=== PATIENT | male | born 1990 | race Caucasian/White ===

== ENCOUNTER 2018-05-06 01:16 | Emergency (ER) | payer MEDICAID, OTHER ==
[2018-05-06 01:23] VITALS: BMI 27.4
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
[2018-05-06 01:45] VITALS: BP 145/87; PULSE 100; RESP 22
[2018-05-06 02:18] VITALS: O2SAT 98
== END 2018-05-06 02:40 ==
LOC: ED 01:16
DX: T65.891A Toxic effect of other specified substances, accidental (unintentional), initial encounter (principal); H57.8 Other specified disorders of eye and adnexa

== ENCOUNTER 2018-05-07 15:13 | Emergency (ER) | payer MEDICAID ==
[2018-05-07 15:13] VITALS: BMI 27.4
[2018-05-07 15:17] VITALS: RESP 18; TEMP 98.8
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
[2018-05-07 21:43] VITALS: BP 127/80; PULSE 77; O2SAT 100
== END 2018-05-07 16:00 | disposition home or self-care (01) ==
LOC: ED 15:13
DX: S60.811A Abrasion of right wrist, initial encounter (principal); H04.129 Dry eye syndrome of unspecified lacrimal gland

== ENCOUNTER 2018-06-27 04:09 | Emergency (ER) | payer MEDICAID ==
[2018-06-27 04:09] VITALS: BMI 27.4
--- NOTE | 2018-06-27 04:44 | ED PDOC ---
Arrival/HPI - General Chief Complaint: Alcohol Ingestion Time Seen by Provider: 06/27/18 04:22 Historian: Patient, EMS - History of Present Illness Narrative History of Present Illness (Text): 06/27/18 04:43 Chalo Kerr is a 28 year old male who presents to the emergency department brought in by EMS for public intoxication tonight. Patient was found outside intoxicated by EMS and patient admits to drinking alcohol tonight. Patient denies any fevers, chills, chest pain, shortness of breath, abdominal pain, nausea, vomiting, diarrhea, back pain, neck pain, urinary symptoms, headache, dizziness, or any other complaint. Symptom Onset: Gradual Symptom Course: Unchanged Activities at Onset: Light Context: Street Past Medical History - Provider Review Nursing Documentation Reviewed: Yes - Infectious Disease Hx of Infectious Diseases: None - Psychiatric Hx Depression: No Hx Emotional Abuse: No Hx Physical Abuse: No Hx Substance Use: No - Anesthesia Hx Anesthesia: No - Suicidal Assessment Feels Threatened In Home Enviroment: No Family/Social History - Physician Review Nursing Documentation Reviewed: Yes Family/Social History: Unknown Family HX Smoking Status: Current Some Days Smoker Hx Alcohol Use: Yes Hx Substance Use: No Allergies/Home Meds Allergies/Adverse Reactions: Allergies No Known Allergies Allergy (Verified 05/06/18 01:23) Home Medications: Home Meds Medication Instructions Recorded Confirmed No Known Home Med [No Known Home 10/31/13 05/07/18 Med] Review of Systems - Physician Review All systems were reviewed & negative as marked: Yes - Review of Systems Constitutional: Normal. absent: Fevers Eyes: Normal ENT: Normal Respiratory: Normal. absent: SOB, Cough Cardiovascular: Normal. absent: Chest Pain Gastrointestinal: Normal. absent: Abdominal Pain, Diarrhea, Nausea, Vomiting Genitourinary Male: Normal. absent: Dysuria, Frequency, Hematuria, Urinary Output Changes Musculoskeletal: Normal. absent: Back Pain, Neck Pain Skin: Normal. absent: Rash Neurological: Normal. absent: Headache, Dizziness Endocrine: Normal Hemo/Lymphatic: Normal Psychiatric: Normal Physical Exam Vital Signs Reviewed: Yes Temperature: Afebrile Blood Pressure: Normal Pulse: Regular Respiratory Rate: Normal Appearance: Positive for: Well-Appearing, Non-Toxic, Comfortable Pain Distress: None Mental Status: Positive for: Alert and Oriented X 3 - Systems Exam Head: Present: Atraumatic, Normocephalic Pupils: Present: PERRL Extroacular Muscles: Present: EOMI Conjunctiva: Present: Normal Mouth: Present: Moist Mucous Membranes Neck: Present: Normal Range of Motion Respiratory/Chest: Present: Clear to Auscultation, Good Air Exchange. No: Respiratory Distress, Accessory Muscle Use Cardiovascular: Present: Regular Rate and Rhythm, Normal S1, S2. No: Murmurs Abdomen: No: Tenderness, Distention, Peritoneal Signs Back: Present: Normal Inspection. No: CVA Tenderness, Midline Tenderness, Paraspinal Tenderness Upper Extremity: Present: Normal Inspection. No: Cyanosis, Edema Lower Extremity: Present: Normal Inspection. No: Edema Neurological: Present: GCS=15, CN II-XII Intact, Speech Normal Skin: Present: Warm, Dry, Normal Color. No: Rashes Psychiatric: Present: Alert, Oriented x 3, Normal Insight, Normal Concentration Medical Decision Making ED Course and Treatment: 06/27/18 04:44 Impression: 28 year old male brought in for alcohol intoxication tonight. Plan: -- Reassess and disposition Progress Notes: Pt's mother present in ER to take pt home. Pt is awake, alert, ambulating with steady. In no acute distress, denies any somatic complaints. Pt stable for d/c home. Pt d/c to custody of mother. - Scribe Statement The provider has reviewed the documentation as recorded by the Scribdeborah Gabriel Provider Scribe Attestation: All medical record entries made by the Scribe were at my direction and personally dictated by me. I have reviewed the chart and agree that the record accurately reflects my personal performance of the history, physical exam, medical decision making, and the department course for this patient. I have also personally directed, reviewed, and agree with the discharge instructions and disposition. Disposition/Present on Arrival - Present on Arrival Any Indicators Present on Arrival: No History of DVT/PE: No History of Uncontrolled Diabetes: No Urinary Catheter: No History of Decub. Ulcer: No History Surgical Site Infection Following: None - Disposition Have Diagnosis and Disposition been Completed?: Yes Diagnosis: Alcohol abuse Disposition: HOME/ ROUTINE Disposition Time: 04:49 Patient Plan: Discharge Condition: STABLE Discharge Instructions (ExitCare): Alcohol Abuse and Alcoholism (DC) Referrals: Alcoholics Anonymous [Outside] - Follow up with primary Forms: [employer] (Malay)
== END 2018-06-27 07:46 | disposition home or self-care (01) ==
LOC: ED 04:09
DX: F10.10 Alcohol abuse, uncomplicated (principal)

== ENCOUNTER 2018-11-21 13:28 | Emergency (ER) | payer MEDICAID ==
[2018-11-21 13:28] VITALS: BMI 27.4
[2018-11-21 13:42] VITALS: RESP 18; TEMP 98.8
--- NOTE | 2018-11-21 13:53 | ED PDOC ---
Arrival/HPI - General Chief Complaint: Cough, Cold, Congestion Time Seen by Provider: 11/21/18 13:41 - History of Present Illness Narrative History of Present Illness (Text): 11/21/18 13:51 28 yo male, presnts with cp, sneezing, cough x 2 days. no fever, no sore throat. no sick contacts. cough is dry. cp is sharp right sided pain. intermittant Past Medical History - Infectious Disease Hx of Infectious Diseases: None - Psychiatric Hx Depression: No Hx Emotional Abuse: No Hx Physical Abuse: No Hx Substance Use: No - Anesthesia Hx Anesthesia: No - Suicidal Assessment Feels Threatened In Home Enviroment: No Family/Social History Family/Social History: Unknown Family HX Smoking Status: Current Some Days Smoker Hx Alcohol Use: Yes Frequency of alcohol use: Socially Hx Substance Use: No Allergies/Home Meds Allergies/Adverse Reactions: Allergies No Known Allergies Allergy (Verified 05/06/18 01:23) Home Medications: Home Meds Medication Instructions Recorded Confirmed No Known Home Med 10/31/13 11/21/18 Review of Systems - Review of Systems Constitutional: Normal Eyes: Normal ENT: Normal Respiratory: Cough Cardiovascular: Chest Pain Gastrointestinal: Normal Genitourinary Male: Normal Musculoskeletal: Normal Skin: Normal Neurological: Normal Endocrine: Normal Hemo/Lymphatic: Normal Psychiatric: Normal Physical Exam Vital Signs Temp Pulse Resp BP Pulse Ox 11/21/18 13:42 98.8 F 77 18 123/72 98 Temperature: Afebrile Blood Pressure: Normal Pulse: Regular Respiratory Rate: Normal Appearance: Positive for: Well-Appearing, Non-Toxic, Comfortable Pain Distress: None Mental Status: Positive for: Alert and Oriented X 3 - Systems Exam Head: Present: Atraumatic, Normocephalic Pupils: Present: PERRL Extroacular Muscles: Present: EOMI Conjunctiva: Present: Normal Mouth: Present: Moist Mucous Membranes Neck: Present: Normal Range of Motion Respiratory/Chest: Present: Clear to Auscultation, Good Air Exchange. No: Respiratory Distress, Accessory Muscle Use Cardiovascular: Present: Regular Rate and Rhythm, Normal S1, S2. No: Murmurs Abdomen: No: Tenderness, Distention, Peritoneal Signs Back: Present: Normal Inspection Upper Extremity: Present: Normal Inspection. No: Cyanosis, Edema Lower Extremity: Present: Normal Inspection. No: Edema Neurological: Present: GCS=15, CN II-XII Intact, Speech Normal Skin: Present: Warm, Dry, Normal Color. No: Rashes Psychiatric: Present: Alert, Oriented x 3, Normal Insight, Normal Concentration Medical Decision Making ED Course and Treatment: 11/21/18 13:52 cp/suspect msk pain viral syndrome. ekg nsr [address] changes, perc neg. 11/21/18 16:15 cxr neg. lungs clear. atyical pain. on phone in nad. stable for dc. - RAD Interpretation Radiology Orders: 11/21/18 13:50 CHEST TWO VIEWS (PA/LAT) [RAD] Stat Disposition/Present on Arrival - Present on Arrival Any Indicators Present on Arrival: No History of DVT/PE: No History of Uncontrolled Diabetes: No Urinary Catheter: No History of Decub. Ulcer: No History Surgical Site Infection Following: None - Disposition Have Diagnosis and Disposition been Completed?: Yes Diagnosis: Viral syndrome, Chest pain Disposition: HOME/ ROUTINE Disposition Time: 15:00 Condition: STABLE Discharge Instructions (ExitCare): Viral Upper Respiratory Infection, Adult (DC), Chest Pain (ED) Additional Instructions: return to er with worsening symptoms or concerns. follow up in clinic and with specialsit. Referrals: [facility] [Outside] - [place] up [place] [facility] [place] - Follow up with primary Moshe Salcedo MD [Staff Provider] - Follow up with primary Forms: [facility] (Syrian)
--- NOTE | 2018-11-21 14:30 | RAD ---
Date of service: 11/21/2018 HISTORY: Chest pain, chest tightness. COMPARISON: No prior. TECHNIQUE: Chest PA and lateral FINDINGS: LUNGS: No active pulmonary disease. PLEURA: No significant pleural effusion identified. No pneumothorax apparent. CARDIOVASCULAR: No aortic atherosclerotic calcification present. Normal cardiac size. No pulmonary vascular congestion. OSSEOUS STRUCTURES: No significant abnormalities. VISUALIZED UPPER ABDOMEN: Normal. OTHER FINDINGS: None. IMPRESSION: No active disease.
[2018-11-21 15:06] VITALS: BP 121/69; PULSE 71; O2SAT 99
--- NOTE | 2018-11-22 09:09 | CARD ---
APPROVED REPORT Date of service: 11/21/2018 EKG Measurement Heart [id number] <Conclusion> Normal sinus rhythm Normal ECG
== END 2018-11-21 15:20 | disposition home or self-care (01) ==
LOC: ED 13:28
DX: B34.9 Viral infection, unspecified (principal); R07.9 Chest pain, unspecified; F17.210 Nicotine dependence, cigarettes, uncomplicated